=== PATIENT | male | born 1970 | race Caucasian/White ===

== ENCOUNTER 2021-01-19 10:30 | Emergency (ER) | payer OTHER ==
[~2021-01-19] VITALS: Ht 172.7 cm; Wt 81.6 kg
[2021-01-19] MEDS ORDERED: VOLTAREN100 GM TOP (10:56)
[2021-01-19] MEDS ORDERED: NAPROXEN500 MG PO (10:56)
== END 2021-01-19 12:08 ==
LOC: ER 10:30
DX: M54.41 Lumbago with sciatica, right side (principal)

== ENCOUNTER 2021-02-09 08:19 | Outpatient (CLI) | payer OTHER ==
[~2021-02-09 08:19] MED LIST: NAPROXEN500 MG PO; VOLTAREN100 GM TOP
== END 2021-02-09 08:28 | disposition home or self-care (01) ==
LOC: LAB 08:19
DX: Z00.01 Encounter for general adult medical examination with abnormal findings (principal); Z11.3 Encounter for screening for infections with a predominantly sexual mode of transmission; Z11.4 Encounter for screening for human immunodeficiency virus [HIV]; Z12.11 Encounter for screening for malignant neoplasm of colon; Z12.5 Encounter for screening for malignant neoplasm of prostate; E03.8 Other specified hypothyroidism; M54.41 Lumbago with sciatica, right side; M54.5 Low back pain; Z13.29 Encounter for screening for other suspected endocrine disorder; Z13.228 Encounter for screening for other metabolic disorders; Z13.220 Encounter for screening for lipoid disorders; Z13.1 Encounter for screening for diabetes mellitus

== ENCOUNTER → 2021-02-11 09:52 | Outpatient (CLI) | payer OTHER | END | disposition home or self-care (01) | LOC: LAB 09:52 | PROVIDERS: ATTEND General Practice | DX: M54.5 Low back pain (principal); Z13.89 Encounter for screening for other disorder; Z00.01 Encounter for general adult medical examination with abnormal findings; Z11.3 Encounter for screening for infections with a predominantly sexual mode of transmission; Z11.4 Encounter for screening for human immunodeficiency virus [HIV]; Z12.11 Encounter for screening for malignant neoplasm of colon; Z12.31 Encounter for screening mammogram for malignant neoplasm of breast; Z12.5 Encounter for screening for malignant neoplasm of prostate; Z13.0 Encounter for screening for diseases of the blood and blood-forming organs and certain disorders involving the immune mechanism; Z13.1 Encounter for screening for diabetes mellitus; Z13.220 Encounter for screening for lipoid disorders; Z13.228 Encounter for screening for other metabolic disorders ==

== ENCOUNTER 2021-02-12 08:07 | Outpatient (CLI) | payer OTHER | END 2021-02-12 08:31 | disposition home or self-care (01) | LOC: MRI 08:07 | PROVIDERS: ATTEND General Practice | DX: Z13.89 Encounter for screening for other disorder (principal); Z00.01 Encounter for general adult medical examination with abnormal findings; Z11.3 Encounter for screening for infections with a predominantly sexual mode of transmission; Z12.11 Encounter for screening for malignant neoplasm of colon; Z12.31 Encounter for screening mammogram for malignant neoplasm of breast; Z12.5 Encounter for screening for malignant neoplasm of prostate; Z13.0 Encounter for screening for diseases of the blood and blood-forming organs and certain disorders involving the immune mechanism; Z13.220 Encounter for screening for lipoid disorders; Z13.228 Encounter for screening for other metabolic disorders; Z13.29 Encounter for screening for other suspected endocrine disorder; M54.5 Low back pain | CPT/HCPCS: 72158 ==

== ENCOUNTER 2021-02-18 10:35 | Outpatient (CLI) | payer OTHER | END 2021-02-18 10:52 | disposition home or self-care (01) | LOC: LAB 10:35 | PROVIDERS: ATTEND General Practice | DX: E78.2 Mixed hyperlipidemia (principal); Z12.5 Encounter for screening for malignant neoplasm of prostate; N40.1 Benign prostatic hyperplasia with lower urinary tract symptoms; B18.2 Chronic viral hepatitis C ==

== ENCOUNTER 2021-03-27 09:23 | Outpatient (CLI) | payer OTHER | END 2021-03-27 09:26 | disposition home or self-care (01) | LOC: LAB 09:23 | PROVIDERS: ATTEND General Practice | DX: E78.2 Mixed hyperlipidemia (principal); E03.8 Other specified hypothyroidism; Z00.01 Encounter for general adult medical examination with abnormal findings ==

== ENCOUNTER 2022-01-15 11:54 | Outpatient (CLI) | payer OTHER | END 2022-01-15 12:01 | disposition home or self-care (01) | LOC: LAB 11:54 | PROVIDERS: ATTEND General Practice | DX: E78.5 Hyperlipidemia, unspecified (principal); Z13.228 Encounter for screening for other metabolic disorders; Z13.29 Encounter for screening for other suspected endocrine disorder ==

== ENCOUNTER 2025-05-07 10:49 | Emergency (ER) | payer OTHER ==
[~2025-05-07] VITALS: Ht 172.7 cm; Wt 77.1 kg
[2025-05-07] MEDS ORDERED: TAMSULOSIN HCL 0.4 MG CAP PO ONE (12:15)
[2025-05-07] MEDS ORDERED: 0.9 % SODIUM CHLORIDE 1,000 ML IV SCH (12:15)
[2025-05-07] MEDS ORDERED: KETOROLAC TROMETHAMINE 60 MG VIAL IM ONE (12:30)
[2025-05-07 13:46] LABS: BASO % 0.1 % (0.1-1.2); EOS # 0.02 (0.04-0.54); EOS % 0.3 % (0.7-7.0); LYMPH # 1.19 (1.18-3.74); LYMPH % 16.9 % (19.3-53.1); MEAN PLATELET VOLUME 9.40 fl (9.4-12.4); MONO # 0.53 (0.24-0.82); MONO % 7.5 % (4.7-12.5); NEUT # 5.26 (1.56-6.13); NEUT % 74.9 % (34.0-71.1); RED CELL DISTRIBUTION WIDTH 12.0 % (11.6-14.4)
[2025-05-07 14:07] LABS: URINE APPEARANCE Clear; URINE BILIRRUBIN Negative (NEGATIVE); URINE BLOOD Moderate; URINE COLOR Yellow; URINE GLUCOSE Negative (NEGATIVE); URINE KETONE Trace (NEGATIVE); URINE LEUKOCYTE Negative; URINE NITRATE Negative; URINE PROTEIN 30 (NEGATIVE); URINE UROBILINOGEN 0.2 E.U./dl
[2025-05-07 14:11] LABS: BUN CREA RATIO 22.0 (7.0-25.0); CREATININE SERUM 1.22 mg/dL (0.70-1.30); GFR 62.14; GLUCOSE FASTING 96.0 mg/dL (65-100); OSMOLALITY SERUM 286.0 MOSM/KG (275-295)
[2025-05-07 14:11] LABS: URINE BACTERIA 8.4 uL (0.0-1933); URINE CAST 3.81 uL (0.0-1.40); URINE EPITHELIAL CELLS 7.3 uL (0.0-38.8); URINE RBC 49.4 uL (0.0-20.8); URINE WBC 14.1 uL (0.0-23.2)
== END 2025-05-07 16:33 | disposition home or self-care (01) ==
LOC: ER 11:10
PROVIDERS: Emergency Medicine
DX: R10.32 Left lower quadrant pain (principal); N13.30 Unspecified hydronephrosis; N20.2 Calculus of kidney with calculus of ureter; Q63.2 Ectopic kidney

== ENCOUNTER 2025-09-21 08:28 | Outpatient (CLI) | payer OTHER | END 2025-09-21 08:37 | disposition home or self-care (01) | LOC: RAD 08:28 | PROVIDERS: ATTEND Urology | DX: N20.1 Calculus of ureter (principal); N20.0 Calculus of kidney ==